=== PATIENT | female | born 1990 | race Asian ===

== ENCOUNTER 2025-08-23 23:21 | Inpatient (IN) | payer MEDICAID, OTHER ==
[~2025-08-23] VITALS: Ht 154.9 cm; Wt 58.2 kg
[2025-08-24 00:02] LABS: Hematocrit 37.2 % (36.0-46.0); Hemoglobin 12.7 g/dL (12.2-16.2); Mean Corpuscular Hemoglobin 28.4 pg (28.0-32.0); Mean Corpuscular Volume 83.0 fL (80.0-100.0); Nucleated Red Blood Cells % 0.1 %
[2025-08-24 00:15] LABS: Alanine Aminotransferase 23 U/L (7-40); Albumin 4.3 g/dL (3.2-4.8); Alkaline Phosphatase 64 U/L (46-116); Anion Gap 10 (5-15); BUN/Creatinine Ratio 15.4 (10.0-20.0); Bilirubin, Total 0.4 mg/dL (0.2-1.0); Calcium 8.8 mg/dL (8.7-10.4); Carbon Dioxide 26 mmol/L (20-31); Chloride 105 mmol/L (98-107); Glucose 99 mg/dL (74-106); Lipase 53 U/L (12-53); Potassium 3.9 mmol/L (3.5-5.1); Sodium 141 mmol/L (136-145); Total Protein 7.1 g/dL (5.7-8.2)
[2025-08-24 00:21] LABS: Blood Urea Nitrogen 8 mg/dL (9-23)
--- NOTE | 2025-08-24 00:35 | DVH ---
INDICATION: epig pain TECHNIQUE: Multiple real-time sonographic images were obtained of the right upper quadrant. COMPARISON: None FINDINGS: Liver is mildly enlarged measuring 16.2 cm. Mild hepatic steatosis. There is no intrahepatic or extrahepatic ductal dilatation. The common duct measures 0.5 cm. Gallbladder is mildly distended with an impacted stone in the gallbladder neck, borderline gallbladder wall thickening (0.5 cm), and mild pericholecystic edema. The right kidney measures 9.1 cm. The right kidney is normal in contour, size, and shape. The echogenicity is normal. There is no hydronephrosis. The pancreas is not well visualized due to overlying bowel gas. IMPRESSION: Impacted gallstone in the gallbladder neck, gallbladder distention, borderline wall thickening, and mild surrounding edema concerning for acute cholecystitis.
--- NOTE | 2025-08-24 00:54 | ED.PDOC ---
GI ASSESSMENT HPI Comments HPI: 34-year-old female who came to ER for abdominal pain. Patient woke up from sleep about 1-1/2 hours ago, sudden onset epigastric/right upper quadrant abdominal pain. Denies any nausea or vomiting. Denies any fever Poor Historian. Past Medical History: Denies any Past Surgical History: REVIEW OF SYSTEMS: CONSTITUTIONAL: Denies acute: fever, diaphoresis, chills, generalized weakness. HEAD: Denies acute: headache, photophobia Eyes: Denies acute: Double vision, vision loss, eye pain, eye discharge. EARS: Denies acute: tinnitus, hearing loss, ear discharge, ear pain, THROAT: Denies acute: sore throat, swelling, difficulty swallowing , pain with swallowing, change in voice. NECK: Denies acute: neck pain, neck swelling, stiff neck. HEART: Denies acute : chest pain, palpitations, LUNGS: Denies acute: SOB, wheezing, cough, hemoptysis ABDOMEN: Denies acute: Nausea, Vomiting, diarrhea, melena , hematemesis, hematochezia SKIN: Denies acute: rash, redness, lesions, itchiness. EXTREMITIES: Denies acute: calf pain, numbness, tingling, weakness, denies pain in extremity. Denies acute: Low back pain. Neuro: Denies acute: focal neurological deficit, motor or sensory focal neurological deficit, tremors, seizure like activity, confusion, dizziness, change in mental status, loss of bowel or bladder function, cauda equina like symptoms. : Denies acute: dysuria, hematuria, flank pain, increase in urinary frequency. PSYCH: Denies acute: hallucination, suicidal ideation, homicidal ideation. FEMALE: Denies acute: abnormal vaginal bleeding, foul odor, unusual discharge. PHYSICAL EXAM: General: -----moderate---acute distress, awake and alert. Head: normocephalic, atraumatic. No raccoon's eyes, no polanco sign. Neck: supple, trachea is midline, no swelling. Throat: Normal phonation. Eyes:, no erythema, no purulent discharge, no proptosis, no icterus. Heart: regular rate, regular rhythm, no significant murmur appreciated. Lungs: no apparent respiratory distress, Able to speak in full sentences. No wheezing, no rhonchi, no crackles. No stridors Clear to auscultation bilaterally. Abdomen: Epigastric/right upper quadrant tender to palpation, non distended, soft, no guarding, no rebound, + bowel sounds. Neuro: Awake, Alert, oriented to name, self, situation, follows commands GCS=15. Speech is normal. Skin: no petechia, no purpura, no cyanosis, non-pale, not jaundice. Lower extremities: --no - Pitting edema no deformity, no focal swelling, no calf TTP. Makes eye contact. moves all four extremities. Face: no apparent facial droop. Ambulating in the ED independently. ED COURSE: DISCLAIMER: This medical document was created using an electronic medical record system with voice recognition software and computerized dictation system. Although this document has been carefully reviewed, there might still be some phonetic and typographical errors. Occasional wrong-word or "sound-alike" substitutions may have occurred due to the inherent limitations of voice recognition software. These areas are purely typographical due to imperfections of the software programs and do not reflect any compromise in the patient's medical care. Please read the chart carefully and recognize, using context, where these substitutions have occurred. Chief Complaint: Abdominal Pain Time Seen by MD: 23:39 Reviewed Notes: Nurses Notes, Allergies Allergies: Coded Allergies: NO KNOWN ALLERGIES (Unverified , 08/24/25) Information Source: Patient, Spouse Mode of Arrival: Ambulatory Past Medical History Surgical History: Was a procedure done? Was a procedure done?: No GI differential Dx Differential Diagnosis: Cholecystitis, Diverticular disease, Gastritis/PUD, Gastroenteritis, Other (DDX include Diverticulitis, colitis, gastroenteritis, acute abdomen, SBO, enteritis, constipation, volvulus, appendicitis, Gallbladder disease, choledocolithiasis, ascending cholangitis, pancreatitis, intraAbdominal mass/neoplasm, hepatitis, UTI, pylonephritis, kidney stone, aneurysm, dissection, Inflammatory bowel disease, gastroparesis, ischemic bowel,,,,,,Food poisoning, bacterial/parasitic/viral etiology, trauma, diabetes DKA,ovarian torsion, ovarian cyst/mass, tubo-ovarian abscess, , ectopic , PID, STD.) X-Ray, Labs, Meds, VS Vital Signs Date Time Temp Pulse Resp B/P (MAP) Pulse Ox O2 Delivery O2 Flow Rate FiO2 08/23/25 23:35 71 08/23/25 23:23 97.2 52 25 120/79 97 97.2 Lab Test 08/24/25 02:45 08/24/25 00:55 08/23/25 23:51 Range/Units Urine Color Colorless Yellow Urine Clarity Clear Clear Urine pH 7.5 5.0-9.0 Urine Specific [place] 1.013 1.001-1.035 Urine Protein Negative Negative Urine Ketones Negative Negative Urine Blood 3+ H Negative /uL Urine Nitrite Negative Negative Urine Bilirubin Negative Negative Urine Urobilinogen Normal Negative mg/dL Urine Leukocyte Esterase 1+ Negative /uL Urine RBC 356 0 - 4 /hpf Urine Microscopic WBC 2 0-5 /HPF Urine Squamous Epithelial Cells Few <5 /hpf Urine Bacteria None seen None Seen /hpf Urine Glucose Normal Normal mg/dL Urine Test Negative Negative Urine Opiates Screen Neg NEGATIVE Urine Fentanyl Screen Neg NEGATIVE Urine Barbiturates Screen Neg NEGATIVE Urine Phencyclidine Screen Neg NEGATIVE Urine Amphetamines Screen Neg NEGATIVE Urine Benzodiazepines Screen Neg NEGATIVE Urine Cocaine Screen Neg NEGATIVE Urine Cannabinoids Screen Neg NEGATIVE Troponin I High Sensitivity < 3 L < 3 L </=34 ng/L White Blood Count 6.2 4.4-10.8 10^3/uL Red Blood Count 4.48 4.0-5.20 10^6/uL Hemoglobin 12.7 12.2-16.2 g/dL Hematocrit 37.2 36.0-46.0 % Mean Corpuscular Volume 83.0 80.0-100.0 fL Mean Corpuscular Hemoglobin 28.4 28.0-32.0 pg Mean Corpuscular Hemoglobin Concent 34.2 32.0-36.0 g/dL Red Cell Distribution Width 13.8 11.8-14.3 % Platelet Count 261 140-450 10^3/uL Mean Platelet Volume 6.8 L 6.9-10.8 fL Neutrophils (%) (Auto) 53.7 37.0-80.0 % Lymphocytes (%) (Auto) 31.8 10.0-50.0 % Monocytes (%) (Auto) 7.8 0.0-12.0 % Eosinophils (%) (Auto) 6.0 0.0-7.0 % Basophils (%) (Auto) 0.7 0.0-2.0 % Neutrophils # (Auto) 3.3 1.6-8.6 10 ^3/uL Lymphocytes # (Auto) 2.0 0.4-5.4 10 ^3/uL Monocytes # (Auto) 0.5 0-1.3 10 ^3/uL Eosinophils # (Auto) 0.4 0-0.8 10 ^3/uL Basophils # (Auto) 0 0-0.2 10 ^3/uL Nucleated Red Blood Cells 0.1 % Sodium Level 141 136-145 mmol/L Potassium Level 3.9 3.5-5.1 mmol/L Chloride Level 105 98-107 mmol/L Carbon Dioxide Level 26 20-31 mmol/L Anion Gap 10 5-15 Blood Urea Nitrogen 8 L 9-23 mg/dL Creatinine 0.52 L 0.550-1.02 mg/dL Glomerular Filtration Rate Calc 125 >90 mL/min BUN/Creatinine Ratio 15.4 10.0-20.0 Serum Glucose 99 74-106 mg/dL Lactic Acid Level 1.0 0.4-2.0 mmol/L Calcium Level 8.8 8.7-10.4 mg/dL Total Bilirubin 0.4 0.2-1.0 mg/dL Aspartate Amino Transferase (AST) 15 13-40 U/L Alanine Aminotransferase (ALT) 23 7-40 U/L Alkaline Phosphatase 64 46-116 U/L Total Protein 7.1 5.7-8.2 g/dL Albumin 4.3 3.2-4.8 g/dL Lipase 53 12-53 U/L Current Medications Medications (Trade) Dose Ordered Sig/Priya Route Start Time Stop Time Status Last Admin Piperacillin Sod/ Tazobactam Sod 100 ml @ 100 mls/hr ONCE ONCE IV 08/24/25 03:00 08/24/25 03:59 DC 08/24/25 03:[address] [address] Ph: [phone] DIAGNOSTIC IMAGING Diagnostic Imaging Report : [id number] Signed PATIENT: BALBIR ALCALA ACCT: [id number] UNIT: [id number] : 1990 LOC: ER ROOM / BED: / AGE / SEX: 34 / F ADM STATUS: REG ER SERVICE 3192 ORDERING PHYSICIAN: HERMINIA MISHRA DO PROCEDURE(s): ABDL - ABDOMEN LIMITED REASON: epig pain ORDER NUMBER(s): [id number], ACCESSION NUMBER(s): [id number] INDICATION: epig pain TECHNIQUE: Multiple real-time sonographic images were obtained of the right upper quadrant. COMPARISON: None FINDINGS: Liver is mildly enlarged measuring 16.2 cm. Mild hepatic steatosis. There is no intrahepatic or extrahepatic ductal dilatation. The common duct measures 0.5 cm. Gallbladder is mildly distended with an impacted stone in the gallbladder neck, borderline gallbladder wall thickening (0.5 cm), and mild pericholecystic edema. The right kidney measures 9.1 cm. The right kidney is normal in contour, size, and shape. The echogenicity is normal. There is no hydronephrosis. The pancreas is not well visualized due to overlying bowel gas. IMPRESSION: Impacted gallstone in the gallbladder neck, gallbladder distention, borderline wall thickening, and mild surrounding edema concerning for acute cholecystitis. ATED BY: MAU AVILEZ MD DICTATED DATE/TIME: 08/24/2531 SIGNED BY: MAU AVILEZ MD SIGNED DATE/TIME: 08/24/2531 CC: [place] [id number] Ph: [phone] DIAGNOSTIC IMAGING Diagnostic Imaging Report : [id number] Signed PATIENT: BALBIR ALCALA ACCT: [id number] UNIT: [id number] : 1990 LOC: OVERFLOW ROOM / BED: [address] [place] [address] / AGE / SEX: 34 / F ADM STATUS: ADM IN SERVICE 0144 ORDERING PHYSICIAN: HERMINIA MISHRA DO PROCEDURE(s): ABPLIV - CT AB PEL WITH IV CON ONLY REASON: epig pain ORDER NUMBER(s): [id number], ACCESSION NUMBER(s): [id number] Exam: CT CT AB PEL WITH IV CON ONLY History: epig pain COMPARISON: None Technique: Multidetector spiral CT of the abdomen and pelvis was performed from lung bases to pubic symphysis. Intravenous contrast was administered during this examination. Portal venous imaging was obtained. Axial, coronal and sagittal multiplanar reformats were performed by the technologist on a separate workstation. Radiation Dose : 1. Abdomen/Pelvis: CTDIvol 7.32 mGy, DLP 423.73 mGy*cm. CONTRAST: Type of contrast: Omniscan 300 Contrast injected: 100 ml Findings: Lung Bases: No acute or significant lung base finding. Normal heart size. No pleural or pericardial effusion. Liver: The liver is normal in size. 2.1 cm probable left lobe hemangioma. No focal lesions. Normal hepatic vascular enhancement. Gallbladder and Biliary Tree: Cholelithiasis, gallbladder distention and moderate wall thickening/ pericholecystic edema. Spleen: Unremarkable Pancreas: The pancreas is normal in appearance without focal lesions or abnormal enhancement. Adrenal Glands: Unremarkable Kidneys: No hydronephrosis. Bladder: Unremarkable Bowel: The stomach is grossly normal in appearance. Retained colorectal stool. Small bowel and colon are otherwise normal in caliber and distribution. The appendix is normal. Ascites: Absent Lymphadenopathy: No mesenteric, retroperitoneal or periportal lymphadenopathy. Abdominal Wall and Mesentery: Unremarkable. Vasculature: The visualized abdominal aorta is normal in size and caliber. Abdominal and pelvic vessels demonstrate normal enhancement. Pelvic Organs: Unremarkable. Likely physiologic endometrial fluid. Musculoskeletal: No aggressive focal bony lesions, acute fractures or dislocation. IMPRESSION: 1. Cholelithiasis, gallbladder distention and wall thickening / pericholecystic edema. In the appropriate clinical setting, these findings may be consistent with acute cholecystitis. 2. Retained colorectal stool. Radiation optimization: All CT scans at this facility use at least one of these dose optimization techniques: automated exposure control mA and/or kV adjustment per patient size (includes targeted exams where dose is matched to clinical indication) or iterative reconstruction. ATED BY: ASHER PURI MD DICTATED DATE/TIME: 08/24/25536 SIGNED BY: ASHER PURI MD SIGNED DATE/TIME: 08/24/25536 CC: [place] [id number] Ph: [phone] DIAGNOSTIC IMAGING Diagnostic Imaging Report : [id number] Signed PATIENT: BALBIR ALCALA ACCT: [id number] UNIT: [id number] : 1990 LOC: OVERFLOW ROOM / BED: 1014-ER / A AGE / SEX: 34 / F ADM STATUS: ADM IN SERVICE 0 ORDERING PHYSICIAN: COLTEN RICO PROCEDURE(s): CXR1 - CHEST XRAY 1 VIEW REASON: chest pain ORDER NUMBER(s): [id number], ACCESSION NUMBER(s): [id number] CHEST RADIOGRAPH Indication: chest pain Technique: Single frontal view of the chest was obtained COMPARISON: None FINDINGS: Lines and Tubes: None Lungs: Clear Pleura: No effusion. No pneumothorax. Cardiomediastinal contours: Unremarkable Bones: Unremarkable IMPRESSION: 1. No acute disease. ATED BY: ASHER PURI MD DICTATED DATE/TIME: 08/24/25527 SIGNED BY: ASHER PURI MD SIGNED DATE/TIME: 08/24/25527 CC: Time of 1ST Reevaluation: 00:58 Reevaluation 1ST: Unchanged Patient Education/Counseling: Diagnosis, Treatment Family Education/Counseling: Diagnosis, Treatment Comments MDM: patient presented with the above HPI.--abdominal pain----workup was initiated. patient was found with the above mentioned diagnosis. the following medications were ordered: please refer to order lists of meds and tests obtained by myself Dr. Mishra. Patient ED course and VS have been stabilized. Patient has been reassessed in the ED and remained in a stable condition. Pertinent incidental findings were discussed with the patient and/or family. Patient/family voices understanding and is agreeable with plan. Patient has been observed in the ED adequate length of time to insure improvement/stability. Escalation of care considered: Consideration of escalation to observation or admission Ultrasound and CT scan of the abdomen and pelvis were obtained which reveals acute cholecystitis. A consult for General surgery was placed. Patient was ADMITTED to the medicine team for further evaluation and treatment of their presentation. All the reports of any imaging studies that were ordered by myself were reviewed by myself. SEPSIS Sepsis Screen Date sepsis recognized/suspect: Aug 23, 2025 Time Sepsis recognized/suspect: 2326 Recent Procedure: No On Antibiotic Therapy: No Respiratory Rate >20: Yes Heart Rate >90: No Temp<36 C (96.8 F) or >38.3 C: No SBP <90 or MAP <65 mmHG: No New Acute Mental Status Change: No Is the patient on CPAP, BIPAP,: No Physician Orders Janitorial Tech (08/23/25 ) Electrocardigram (08/23/25 23:39) Abdomen Limited (08/23/25 23:42) Npo Except For Medications (08/24/25 00:56) Npo (Nothing By Mouth) Diet (08/24/25 Breakfast) Ct Ab Pel With Iv Con Only (08/24/25 01:44) Vital Signs Date Time Temp Pulse Resp B/P (MAP) Pulse Ox O2 Delivery O2 Flow Rate FiO2 08/23/25 23:35 71 08/23/25 23:23 97.2 52 25 120/79 97 97.2 Laboratory Tests Test 08/23/25 23:51 Lactic Acid Level 1.0 mmol/L (0.4-2.0) White Blood Count 6.2 10^3/uL (4.4-10.8) Medications Medications Dose Ordered Sig/Priya Route Start Time Stop Time Status Last Admin Dose Admin Piperacillin Sod/ Tazobactam Sod 100 ml @ 100 mls/hr ONCE ONCE IV 08/24/25 03:00 08/24/25 03:59 DC 08/24/25 03:16 Departure 1 Departure Time of Disposition: 00:55 Impression: Primary Impression: Acute cholecystitis Disposition: ADMITTED INPATIENT Admit to: [facility] Condition: Guarded Discharged With: Self Critical Care Note Critical Care Time?: No I personally scribed for HERMINIA MISHRA DO ([email or web address]) on 08/24/25 at 00:54. Electronically submitted by Johan Orourke ([facility] I personally scribed for HERMINIA MISHRA DO ([email or web address]) on 08/24/25 at 01:00. Electronically submitted by Johan Orourke ([facility] I personally scribed for HERMINIA MISHRA DO ([email or web address]) on 08/24/25 at 01:33. Electronically submitted by Johan Orourke ([facility] I personally scribed for HERMINIA MISHRA DO ([email or web address]) on 08/24/25 at 05:47. Electronically submitted by Johan Orourke ([email or web address]). HERMINIA MISHRA DO Aug 24, 2025 00:54
[2025-08-24] MEDS ORDERED: ONDANSETRON HCL 4 MG/2 ML VIAL IV PRN (03:15)
[2025-08-24] MEDS ORDERED: HYDROmorphone HCL 2 MG/ML VL/or syr IV PRN (03:15)
[2025-08-24] MEDS ORDERED: SODIUM CHLORIDE 0.9% 1,000 ML IV ONE (03:15)
[2025-08-24] MEDS: PIPERACILLIN-TAZOB 3.375GM 100 ML IV ONE (03:16)
--- NOTE | 2025-08-24 03:29 | DVHHPRES ---
History of Present Illness Resident Creating Document: COLTEN [place] History of Present Illness Patient is a 34-year-old female with no significant past medical history, presented to [facility] ED with complaint of acute abdominal pain. She reports that the pain began suddenly at approximately 9:30 p.m. tonight, waking her from sleep and prompting her to come to the ED. The pain is described as sharp and constant, located in the right upper quadrant and epigastric region. She denies associated symptoms including nausea, vomiting, or fever. She notes experiencing similar symptoms approximately two weeks ago, which she managed at home with pain medication. On evaluation in the ED, patient is afebrile, tachypnea, other vitals are stable. Initial labs show BUN 8, creatinine 0.52. RUQ ultrasound shows Impacted gallstone in the gallbladder neck, gallbladder distention, borderline wall thickening, and mild surrounding edema concerning for acute cholecystitis. The patient was placed NPO, started on IV antibiotics and IV fluids. Patient is admitted for further evaluation and management. Past Surgical History: None Smoke: No ALCOHOL: none Drugs: None Lives: with Family Review of Systems Review of Systems Eyes: No Pain, No Vision change, No Conjunctivae inflammation, No Eyelid inflammation, No Other, No Redness ENT: No Ear pain, No Ear discharge, No Nose pain, No Nose discharge, No Nose congestion, No Mouth pain, No Mouth swelling, No Throat pain, No Throat swelling, No Other Cardiovascular: No Chest Pain, No Palpitations, No Orthopnea, No Paroxysmal No Dyspnea, No Edema, No Lt Headedness, No Other Respiratory: No Cough, No Dry, No Shortness of breath, No SOB with exertion, No Wheezing, No Hemoptysis, No Pleuritic Pain, No Sputum, No Other Gastrointestinal: No Nausea, No Vomiting, Abdominal Pain, No Diarrhea, No Constipation, No Melena, No Hematochezia, No Other Genitourinary: No Dysuria, No Frequency, No Incontinence, No Hematuria, No Retention, No Other Musculoskeletal: No other, No neck pain, No shoulder pain, No arm pain, No back pain, No hand pain, No leg pain, No foot pain Skin: No Rash, No Lesions, No Jaundice, No Bruising, No Other Allergies: Coded Allergies: NO KNOWN ALLERGIES (Unverified , 08/24/25) Exam Vital Signs Vital Signs Date Time Temp Pulse Resp B/P (MAP) Pulse Ox O2 Delivery O2 Flow Rate FiO2 08/23/25 23:35 71 08/23/25 23:23 97.2 25 120/79 97 97.2 Exam General Appearance: Mild distress. Well developed. Well nourished. NAD Head Exam: Normal inspection Neck Exam: Normal inspection. Non-tender. Normal alignment Pulmonary/Respiratory: Chest non-tender. Clear bilateral breath sounds, no crackles, no wheezing. Cardiovascular/Chest: Regular rate and rhythm. No murmurs. No JVD. Peripheral Pulses: 2+ Radial (R). 2+ Radial (L). 2+ Pedal (R). 2+ Pedal (L) Abdominal Exam: positive Eid sign. RUQ tenderness. Normal bowel sounds. Soft. normal abdomen, no visible veins, Nontender. No hepatospenomegaly. No masses Ankle Exam: Negative ankle edema Lower extremities: Negative lower extremity edema Neuro/Mental Status: A&O x4. Coherent. Thoughts/Psych: Normal thought pattern. Appropriate mood and affect. Good judgement and insight Skin Exam: Normal inspection. Normal color. Warm. Dry Labs/Xrays Labs Test 08/24/25 00:55 08/23/25 23:51 Range/Units Troponin I High Sensitivity < 3 L </=34 ng/L White Blood Count 6.2 4.4-10.8 10^3/uL Red Blood Count 4.48 4.0-5.20 10^6/uL Hemoglobin 12.7 12.2-16.2 g/dL Hematocrit 37.2 36.0-46.0 % Mean Corpuscular Volume 83.0 80.0-100.0 fL Mean Corpuscular Hemoglobin 28.4 28.0-32.0 pg Mean Corpuscular Hemoglobin Concent 34.2 32.0-36.0 g/dL Red Cell Distribution Width 13.8 11.8-14.3 % Platelet Count 261 140-450 10^3/uL Mean Platelet Volume 6.8 L 6.9-10.8 fL Neutrophils (%) (Auto) 53.7 37.0-80.0 % Lymphocytes (%) (Auto) 31.8 10.0-50.0 % Monocytes (%) (Auto) 7.8 0.0-12.0 % Eosinophils (%) (Auto) 6.0 0.0-7.0 % Basophils (%) (Auto) 0.7 0.0-2.0 % Neutrophils # (Auto) 3.3 1.6-8.6 10 ^3/uL Lymphocytes # (Auto) 2.0 0.4-5.4 10 ^3/uL Monocytes # (Auto) 0.5 0-1.3 10 ^3/uL Eosinophils # (Auto) 0.4 0-0.8 10 ^3/uL Basophils # (Auto) 0 0-0.2 10 ^3/uL Nucleated Red Blood Cells 0.1 % Sodium Level 141 136-145 mmol/L Potassium Level 3.9 3.5-5.1 mmol/L Chloride Level 105 98-107 mmol/L Carbon Dioxide Level 26 20-31 mmol/L Anion Gap 10 5-15 Blood Urea Nitrogen 8 L 9-23 mg/dL Creatinine 0.52 L 0.550-1.02 mg/dL Glomerular Filtration Rate Calc 125 >90 mL/min BUN/Creatinine Ratio 15.4 10.0-20.0 Serum Glucose 99 74-106 mg/dL Lactic Acid Level 1.0 0.4-2.0 mmol/L Calcium Level 8.8 8.7-10.4 mg/dL Total Bilirubin 0.4 0.2-1.0 mg/dL Aspartate Amino Transferase (AST) 15 13-40 U/L Alanine Aminotransferase (ALT) 23 7-40 U/L Alkaline Phosphatase 64 46-116 U/L Total Protein 7.1 5.7-8.2 g/dL Albumin 4.3 3.2-4.8 g/dL Lipase 53 12-53 U/L SEPSIS Sepsis Screen Date sepsis recognized/suspect: Aug 23, 2025 Time Sepsis recognized/suspect: 2326 Recent Procedure: No On Antibiotic Therapy: No Respiratory Rate >20: Yes Heart Rate >90: No Temp<36 C (96.8 F) or >38.3 C: No SBP <90 or MAP <65 mmHG: No New Acute Mental Status Change: No Is the patient on CPAP, BIPAP,: No Physician Orders Discharge Planner (08/23/25 ) Urinalysis (08/23/25 23:39) Electrocardigram (08/23/25 23:39) Abdomen Limited (08/23/25 23:42) Test, Urine (08/23/25 23:42) Npo Except For Medications (08/24/25 00:56) Npo (Nothing By Mouth) Diet (08/24/25 Breakfast) Sodium Chloride 0.9% (08/24/25 01:00) Ondansetron Hcl (Zofran) (08/24/25 01:00) Fentanyl Citrate Injection (08/24/25 01:00) Ct Ab Pel With Iv Con Only (08/24/25 01:44) Piperacillin-Tazob 3.375gm (Zosyn 3.375g (08/24/25 03:00) Admit (08/24/25 03:11) Allergies (08/24/25 03:11) Code Status (08/24/25 03:11) Ondansetron Hcl (Zofran) (08/24/25 03:15) Complete Blood Count (08/24/25 04:00) Comprehensive Metabolic Panel (08/24/25 04:00) Condition: Fair (08/24/25 03:11) Oxygen By Nasal Cannula (08/24/25 03:11) Stat Ekg For Chest Pain (08/24/25 03:11) Notify Md Of Changes From Base (08/24/25 03:11) Type And Screen (08/24/25 03:11) PTPTT (08/24/25 03:11) Drug Screen (08/24/25 03:11) NS (08/24/25 03:15) Pantoprazole (Protonix) (08/24/25 03:15) Pantoprazole (Protonix) (08/25/25 10:00) Chest Xray 1 View (08/24/25 03:11) Magnesium (08/24/25 03:11) Hydromorphone Injection (Dilaudid Inject (08/24/25 03:15) Ceftriaxone Ivpb Rocephin (08/24/25 09:00) Ceftriaxone Ivpb Rocephin (08/24/25 03:15) Metronidazole Ivpb Flagyl (08/24/25 06:00) * Surgical Consult (08/24/25 03:11) Vital Signs Date Time Temp Pulse Resp B/P (MAP) Pulse Ox O2 Delivery O2 Flow Rate FiO2 08/23/25 23:35 71 08/23/25 23:23 97.2 52 25 120/79 97 97.2 Laboratory Tests Test 08/23/25 23:51 Lactic Acid Level 1.0 mmol/L (0.4-2.0) White Blood Count 6.2 10^3/uL (4.4-10.8) Assessment/Plan Assessment/Plan Acute cholecystitis Cholelithiasis RUQ Ultrasound: Impacted gallstone in the gallbladder neck, gallbladder distention, borderline wall thickening, and mild surrounding edema concerning for acute cholecystitis. Surgical consult Chest X-ray ordered CT abdomen/pelvis ordered ceftriaxone IV once Metronidazole IVPB q8h IV NS 1,000 MLS/HR one NS IV 100 ML/HR one Zofran 8 MG IV once potonix 40 MG IV once pain management with Dilaudid 0.5 MG IV q4h prn Diet: NPO PUD prophylaxis: protonix 40mg Goals of care: Full code, discussed for >30 minutes on 08/24/25 Plan discussed with patient Plan discussed with Dr. Rock Plan discussed with: Patient My Orders Orders - COLTEN [place] RESIDENT Procedure Category Date Status Time Admit ADMIT 08/24/25 Transmitted 03:11 Allergies MERLE 08/24/25 Transmitted 03:11 Code Status CODE 08/24/25 Transmitted 03:11 Ondansetron Hcl PHA 08/24/25 Transmitted (Zofran) 03:15 Complete Blood Count LAB 08/24/25 Transmitted 04:00 Comprehensive LAB 08/24/25 Transmitted Metabolic Panel 04:00 Condition: Fair MERLE 08/24/25 Transmitted 03:11 Oxygen By Nasal RT 08/24/25 Transmitted Cannula 03:11 Stat Ekg For Chest MERLE 08/24/25 Transmitted Pain 03:11 Notify Md Of Changes MERLE 08/24/25 Transmitted From Base 03:11 Type And Screen BBK 08/24/25 Transmitted 03:11 PTPTT LAB 08/24/25 Transmitted 03:11 Drug Screen LAB 08/24/25 Transmitted 03:11 NS PHA 08/24/25 Transmitted 03:15 Pantoprazole PHA 08/24/25 Transmitted (Protonix) 03:15 Pantoprazole PHA 08/25/25 Transmitted (Protonix) 10:00 Chest Xray 1 View XY 08/24/25 Transmitted 03:11 Magnesium LAB 08/24/25 Transmitted 03:11 Hydromorphone PHA 08/24/25 Transmitted Injection (Dilaudid 03:15 Ceftriaxone Ivpb PHA 08/24/25 Transmitted Rocephin 09:00 Ceftriaxone Ivpb PHA 08/24/25 Transmitted Rocephin 03:15 Metronidazole Ivpb PHA 08/24/25 Transmitted Flagyl 06:00 * Surgical Consult CONS 08/24/25 Transmitted 03:11 Date of Service: Aug 24, 2025 Billing Provider: MADISON ROCK MD Common Visit Codes: [id number] INP/OBS CARE (HIGH) Secondary Visit Codes: [id number] CARE PLAN 30 MINUTES COLTEN RICO RESIDENT Aug 24, 2025 03:29
[2025-08-24 04:16] LABS: Amphetamine Screen, Urine Neg (NEGATIVE); Barbiturate Scree,Urine Neg (NEGATIVE); Benzodiazephine Screen, Urine Neg (NEGATIVE); Cannabinoid Screen, Urine Neg (NEGATIVE); Cocaine Screen, Urine Neg (NEGATIVE); Opiate Scree,Urine Neg (NEGATIVE); Phencyclidine Screen, Urine Neg (NEGATIVE)
[2025-08-24 04:24] LABS: Hematocrit 38.3 % (36.0-46.0); Hemoglobin 12.9 g/dL (12.2-16.2); Mean Corpuscular Hemoglobin 28.2 pg (28.0-32.0); Mean Corpuscular Volume 83.5 fL (80.0-100.0); Nucleated Red Blood Cells % 0.1 %
[2025-08-24 04:32] LABS: Urine Protein, UAD Negative (Negative)
[2025-08-24 04:40] LABS: INR 0.95 (0.9-1.15); Partial Thromboplastin Time 27.1 SEC (24.5-34.5); Prothrombin Time 10.1 sec (9.3-11.8)
[2025-08-24 04:41] LABS: Alanine Aminotransferase 24 U/L (7-40); Albumin 4.5 g/dL (3.2-4.8); Alkaline Phosphatase 65 U/L (46-116); Anion Gap 11 (5-15); BUN/Creatinine Ratio 14.0 (10.0-20.0); Calcium 9.2 mg/dL (8.7-10.4); Carbon Dioxide 25 mmol/L (20-31); Chloride 104 mmol/L (98-107); Magnesium 2.1 mg/dL (1.6-2.6); Potassium 3.9 mmol/L (3.5-5.1); Sodium 140 mmol/L (136-145); Total Protein 7.4 g/dL (5.7-8.2)
[2025-08-24 04:42] LABS: Bilirubin, Total 0.4 mg/dL (0.2-1.0)
[2025-08-24 05:01] LABS: Blood Urea Nitrogen 7 mg/dL (9-23); Glucose 111 mg/dL (74-106)
[2025-08-24] MEDS: IOHEXOL 300 MG/ML 100ML BOTTLE IJ ONE (05:12)
--- NOTE | 2025-08-24 05:31 | DVH ---
CHEST RADIOGRAPH Indication: chest pain Technique: Single frontal view of the chest was obtained COMPARISON: None FINDINGS: Lines and Tubes: None Lungs: Clear Pleura: No effusion. No pneumothorax. Cardiomediastinal contours: Unremarkable Bones: Unremarkable IMPRESSION: 1. No acute disease.
--- NOTE | 2025-08-24 05:40 | DVH ---
Exam: CT CT AB PEL WITH IV CON ONLY History: epig pain COMPARISON: None Technique: Multidetector spiral CT of the abdomen and pelvis was performed from lung bases to pubic symphysis. Intravenous contrast was administered during this examination. Portal venous imaging was obtained. Axial, coronal and sagittal multiplanar reformats were performed by the technologist on a separate workstation. Radiation Dose : 1. Abdomen/Pelvis: CTDIvol 7.32 mGy, DLP 423.73 mGy*cm. CONTRAST: Type of contrast: Omniscan 300 Contrast injected: 100 ml Findings: Lung Bases: No acute or significant lung base finding. Normal heart size. No pleural or pericardial effusion. Liver: The liver is normal in size. 2.1 cm probable left lobe hemangioma. No focal lesions. Normal hepatic vascular enhancement. Gallbladder and Biliary Tree: Cholelithiasis, gallbladder distention and moderate wall thickening/ pericholecystic edema. Spleen: Unremarkable Pancreas: The pancreas is normal in appearance without focal lesions or abnormal enhancement. Adrenal Glands: Unremarkable Kidneys: No hydronephrosis. Bladder: Unremarkable Bowel: The stomach is grossly normal in appearance. Retained colorectal stool. Small bowel and colon are otherwise normal in caliber and distribution. The appendix is normal. Ascites: Absent Lymphadenopathy: No mesenteric, retroperitoneal or periportal lymphadenopathy. Abdominal Wall and Mesentery: Unremarkable. Vasculature: The visualized abdominal aorta is normal in size and caliber. Abdominal and pelvic vessels demonstrate normal enhancement. Pelvic Organs: Unremarkable. Likely physiologic endometrial fluid. Musculoskeletal: No aggressive focal bony lesions, acute fractures or dislocation. IMPRESSION: 1. Cholelithiasis, gallbladder distention and wall thickening / pericholecystic edema. In the appropriate clinical setting, these findings may be consistent with acute cholecystitis. 2. Retained colorectal stool. Radiation optimization: All CT scans at this facility use at least one of these dose optimization techniques: automated exposure control mA and/or kV adjustment per patient size (includes targeted exams where dose is matched to clinical indication) or iterative reconstruction.
[2025-08-24] MEDS: PANTOPRAZOLE 40 MG/10 ML VIAL INJ IV ONE (06:38)
[2025-08-24] MEDS: ONDANSETRON HCL 4 MG/2 ML VIAL IV ONE (06:38)
[2025-08-24] MEDS: fentaNYL CITRATE 100 MCG/2 ML VL IV ONE (06:40)
[2025-08-24] MEDS: SODIUM CHLORIDE 0.9% 1,000 ML IV ONE (06:41)
[2025-08-24 08:36] VITALS: BP 95/58; PULSE 68; RESP 16; TEMP 98.1; O2SAT 100
--- NOTE | 2025-08-24 09:05 | DVHINCON2 ---
Date of service: Aug 24, 2025 Reason for Consultation acute cholecystitis History of Present Illness Chief Complaint of Abdominal/F: Abdominal pain Onset/Duration of Abd/Flank Pa: Constant Quality of Abd/Flank Pain: Sharpness Location of Abdominal Onset: Epigastric Abdominal Pain Radiation: RUQ Timing of Abdominal Pain: Still present Past Medical History Cardiac: No pertinent Hx Pulmonary: No pertinent Hx Central Nervous System: No pertinent Hx GI: No pertinent Hx Hemotology/Oncology: No pertinent Hx Hepatobiliary: No pertinent Hx Psychiatric: No pertinent Hx Musculoskeletal: No pertinent Hx Rheumotologic: No pertinent Hx Infectious Disease: No peritnent Hx ENT: No pertinent Hx Renal/: No pertinent Hx Endocrine: No pertinent Hx Dermatology: No pertinent Hx Past Surgical History: Family History: No pertinent Hx Smoker: No Hx (Negative) Alocohol: None Drugs: None Lives with: With family Review of Systems Constitutional: No symptom reported Ears, Nose, & Throat: No symptom reported Eyes: No symptom reported Pulmonary/Respiratory: No symptom reported Cardiovascular: No symptom reported Gastrointestinal: Abdominal Pain Genitourinary: No symptom reported Musculoskeletal: No symptom reported Skin: No symptom reported Psychiatric: No symptom reported Endocrine: No symptom reported Hemotologic/Lymphatic: No symptom reported H&P Exam Vital Signs Vital Signs Date Time Temp Pulse Resp B/P (MAP) Pulse Ox O2 Delivery O2 Flow Rate FiO2 08/24/25 06:40 115/79 08/24/25 06:19 97.8 79 18 100 97.8 General Appeara: Well developed, Well nourished Head Exam: Normal inspection Pulmonary/Respiratory: Normal inspection Cardiovascular/Chest: Normal inspection, Regular rate Abdominal Exam: Soft Abdominal Pain Onset Location: Epigastric Tendon/ Neuro: Normal sensation QA MANAGER Exam: Normal hearing, Normal speech, PERRL Neuro/Mental St: Alert, Oriented Appearance: Appropriate appearance Eye contact/ Speech: Cooperative, Good eye contact, Normal speech Skin Exam: Normal inspection, Normal color, Warm/dry Labs/Xrays Labs Test 08/24/25 03:56 08/24/25 02:45 08/24/25 00:55 08/23/25 23:51 Range/Units White Blood Count 5.7 4.4-10.8 10^3/uL Red Blood Count 4.58 4.0-5.20 10^6/uL Hemoglobin 12.9 12.2-16.2 g/dL Hematocrit 38.3 36.0-46.0 % Mean Corpuscular Volume 83.5 80.0-100.0 fL Mean Corpuscular Hemoglobin 28.2 28.0-32.0 pg Mean Corpuscular Hemoglobin Concent 33.8 32.0-36.0 g/dL Red Cell Distribution Width 13.4 11.8-14.3 % Platelet Count 264 140-450 10^3/uL Mean Platelet Volume 7.0 6.9-10.8 fL Neutrophils (%) (Auto) 60.2 37.0-80.0 % Lymphocytes (%) (Auto) 27.1 10.0-50.0 % Monocytes (%) (Auto) 6.4 0.0-12.0 % Eosinophils (%) (Auto) 5.8 0.0-7.0 % Basophils (%) (Auto) 0.5 0.0-2.0 % Neutrophils # (Auto) 3.4 1.6-8.6 10 ^3/uL Lymphocytes # (Auto) 1.5 0.4-5.4 10 ^3/uL Monocytes # (Auto) 0.4 0-1.3 10 ^3/uL Eosinophils # (Auto) 0.3 0-0.8 10 ^3/uL Basophils # (Auto) 0 0-0.2 10 ^3/uL Nucleated Red Blood Cells 0.1 % Prothrombin Time 10.1 9.3-11.8 sec Prothrombin Time INR 0.95 0.9-1.15 Activated Partial Thromboplast Time 27.1 24.5-34.5 SEC Sodium Level 140 136-145 mmol/L Potassium Level 3.9 3.5-5.1 mmol/L Chloride Level 104 98-107 mmol/L Carbon Dioxide Level 25 20-31 mmol/L Anion Gap 11 5-15 Blood Urea Nitrogen 7 L 9-23 mg/dL Creatinine 0.50 L 0.550-1.02 mg/dL Glomerular Filtration Rate Calc 126 >90 mL/min BUN/Creatinine Ratio 14.0 10.0-20.0 Serum Glucose 111 H 74-106 mg/dL Calcium Level 9.2 8.7-10.4 mg/dL Magnesium Level 2.1 1.6-2.6 mg/dL Total Bilirubin 0.4 0.2-1.0 mg/dL Aspartate Amino Transferase (AST) 14 13-40 U/L Alanine Aminotransferase (ALT) 24 7-40 U/L Alkaline Phosphatase 65 46-116 U/L Total Protein 7.4 5.7-8.2 g/dL Albumin 4.5 3.2-4.8 g/dL Urine Color Colorless Yellow Urine Clarity Clear Clear Urine pH 7.5 5.0-9.0 Urine Specific [place] 1.013 1.001-1.035 Urine Protein Negative Negative Urine Ketones Negative Negative Urine Blood 3+ H Negative /uL Urine Nitrite Negative Negative Urine Bilirubin Negative Negative Urine Urobilinogen Normal Negative mg/dL Urine Leukocyte Esterase 1+ Negative /uL Urine RBC 356 0 - 4 /hpf Urine Microscopic WBC 2 0-5 /HPF Urine Squamous Epithelial Cells Few <5 /hpf Urine Bacteria None seen None Seen /hpf Urine Glucose Normal Normal mg/dL Urine Test Negative Negative Urine Opiates Screen Neg NEGATIVE Urine Fentanyl Screen Neg NEGATIVE Urine Barbiturates Screen Neg NEGATIVE Urine Phencyclidine Screen Neg NEGATIVE Urine Amphetamines Screen Neg NEGATIVE Urine Benzodiazepines Screen Neg NEGATIVE Urine Cocaine Screen Neg NEGATIVE Urine Cannabinoids Screen Neg NEGATIVE Troponin I High Sensitivity < 3 L </=34 ng/L Lactic Acid Level 1.0 0.4-2.0 mmol/L Lipase 53 12-53 U/L Assessment/Plan Problem List: (1) Acute cholecystitis Primary Diagnosis acute cholecystitis Plan patient complaint of epigastric pain which woke her up from her sleep which pro pmted her to come to the ER she describes the pain as sharp and constant. The pain is better today. Patietn on exam complains of epigastric pain and discofort to the right upper quadrant. Positive murphys sign denies nausea or vomiting review of ultrasound IMPRESSION: Impacted gallstone in the gallbladder neck, gallbladder distention, borderline wall thickening, and mild surrounding edema concerning for acute cholecystitis. from review of image reports, notes, exam and discussion with Dr. Levin surgery for tomorrow am surgery was explained to patient with risks and complications in detail Plan: Laparoscopic possibly open cholecystectomy tomorrow am NPO IV hydration Plan discussed with: Patient, Other (Dr. Juvenal Fisher) Visit Coding Surgery Date of Service if different f: Aug 24, 2025 Billing Provider: ALISON LEVIN MD Surgery Visit Codes: 77317 - INP CONSULT <80 MIN BRANDI CHOWDHURY LEAD PORTFOLIO MANAGER Aug 24, 2025 09:05
[2025-08-24] MEDS: D5W/SOD CHL 0.45%/KCL 20MEQ 1,000 ML IV SCH (11:00)
[2025-08-24 11:18] VITALS: BP 95/58; PULSE 68; RESP 16; TEMP 98.1; O2SAT 100
[2025-08-24 12:42] VITALS: BP 92/85; PULSE 63; RESP 16; TEMP 97.9; O2SAT 99
[2025-08-24 16:45] VITALS: BP 97/64; PULSE 72; RESP 16; TEMP 97.7; O2SAT 100
[2025-08-24 20:00] VITALS: PULSE 68; RESP 16; O2SAT 99
[2025-08-24 21:00] VITALS: BP 94/61; PULSE 68; RESP 16; TEMP 97.4; O2SAT 99
[2025-08-25] VITALS (7 sets, daily range): BP systolic 92–118; BP diastolic 58–75; PULSE 69–102; RESP 16–18; TEMP 97.8–98.5; O2SAT 91–100
[2025-08-25 06:57] LABS: Alanine Aminotransferase 23 U/L (7-40); Albumin 4.3 g/dL (3.2-4.8); Alkaline Phosphatase 66 U/L (46-116); BUN/Creatinine Ratio 8.9 (10.0-20.0); Bilirubin, Total 0.5 mg/dL (0.2-1.0); Carbon Dioxide 27 mmol/L (20-31); Glucose 85 mg/dL (74-106); Potassium 3.6 mmol/L (3.5-5.1); Sodium 142 mmol/L (136-145); Total Protein 7.2 g/dL (5.7-8.2)
[2025-08-25 07:03] LABS: Blood Urea Nitrogen 5 mg/dL (9-23); Calcium 8.6 mg/dL (8.7-10.4)
[2025-08-25 07:11] LABS: Hematocrit 38.0 % (36.0-46.0); Hemoglobin 12.9 g/dL (12.2-16.2); Mean Corpuscular Hemoglobin 28.0 pg (28.0-32.0); Mean Corpuscular Volume 82.7 fL (80.0-100.0); Nucleated Red Blood Cells % 0.0 %
[2025-08-25 09:09] LABS: Anion Gap 10 (5-15); Chloride 105 mmol/L (98-107)
--- NOTE | 2025-08-25 11:35 | DVHPN2 ---
Subjective resting/ at bedside Changes from previous H/P or p: No Changes Objective Vitals Vital Signs Date Time Temp Pulse Resp B/P (MAP) Pulse Ox O2 Delivery O2 Flow Rate FiO2 08/25/25 08:54 97.8 71 17 96/68 (77) 100 97.8 08/25/25 08:04 Room Air* 0 21 Intake/Output Intake and Output 08/25/25 07:00 Intake Total 1350 ml Balance 1350 ml Intake Oral 0 ml IV Total 1350 ml # Voids 3 General Appearance: Alert, Oriented X3, No acute distress Lungs: Clear to auscultation Cardiovascular: Regular rate, Normal S1, Normal S2 Abdomen: Normal bowel sounds, Soft, No tenderness, No hepatospenomegaly Neuro: Other (sleeping now/per nursing and no new concerns/changes) Medications Current Medications Medications Dose Ordered Sig/Priya Route Start Time Stop Time Status Last Admin Dose Admin Ondansetron HCl 4 mg Q4HP PRN IV 08/24/25 03:15 Pantoprazole Sodium 40 mg DAILY IV 08/25/25 10:00 Hydromorphone HCl 0.5 mg Q4HPRN PRN IV 08/24/25 03:15 Ceftriaxone Sodium 50 ml @ 100 mls/hr DAILY@09 IV 08/24/25 09:00 08/24/25 06:38 100 MLS/HR Metronidazole 100 ml @ 100 mls/hr Q8HR IV 08/24/25 06:00 08/25/25 05:52 100 MLS/HR Potassium Chloride/Dextrose/ Sod Cl 1,000 ml @ 120 mls/hr Q8H20M IV 08/24/25 09:15 08/24/25 11:00 120 MLS/HR Laboratory Results Laboratory Tests 08/25/25 05:29 Chemistry Test 08/25/25 05:29 Albumin 4.3 g/dL (3.2-4.8) Calcium Level 8.6 mg/dL (8.7-10.4) L Total Protein 7.2 g/dL (5.7-8.2) LFT Test 08/25/25 05:29 Alanine Aminotransferase (ALT) 23 U/L (7-40) Alkaline Phosphatase 66 U/L (46-116) Aspartate Amino Transferase (AST) 21 U/L (13-40) Total Bilirubin 0.5 mg/dL (0.2-1.0) Urinalysis Test 08/24/25 02:45 Urine Color Colorless (Yellow) Urine Clarity Clear (Clear) Urine pH 7.5 (5.0-9.0) Urine Specific [place] 1.013 (1.001-1.035) Urine Protein Negative (Negative) Urine Ketones Negative (Negative) Urine Blood 3+ /uL (Negative) H Urine Nitrite Negative (Negative) Urine Bilirubin Negative (Negative) Urine Urobilinogen Normal mg/dL (Negative) Urine Leukocyte Esterase 1+ /uL (Negative) Urine RBC 356 /hpf (0 - 4) Urine Microscopic WBC 2 /HPF (0-5) Urine Squamous Epithelial Cells Few /hpf (<5) Urine Bacteria None seen /hpf (None Seen) Urine Glucose Normal mg/dL (Normal) Urine Test Negative (Negative) Assessment/Plan Plan discussed with: Patient, Spouse, Other My Orders Orders - GELA ALLISON MD Procedure Category Date Status Time Npo After Midnight MERLE 08/24/25 In Process 18:44 Npo (Nothing By DIET 08/25/25 Transmitted Mouth) Diet Breakfast Date of Service: Aug 25, 2025 Billing Provider: GELA ALLISON MD Common Visit Codes: [id number] INP/OBS CARE(MOD) GELA ALLISON MD Aug 25, 2025 11:35
[2025-08-25] MEDS: PANTOPRAZOLE 40 MG/10 ML VIAL INJ IV SCH (11:41)
[2025-08-25] MEDS: LIDOCAINE W/ EPINEPHRINE 1% 20ML VIAL ONE (12:07)
[2025-08-25] MEDS: BUPIVACAINE HCL 0.25% P/F 10 ML VIAL ONE (12:07)
[2025-08-25] MEDS: ceFAZolin 1GM VL ONE (12:55)
[2025-08-25] MEDS ORDERED: fentaNYL CITRATE 100 MCG/2 ML VL ONE (12:57)
[2025-08-25] MEDS ORDERED: MIDAZOLAM HCL 2MG/2ML 2ml VIAL (1mg/ml) ONE (12:57)
[2025-08-25] MEDS ORDERED: ONDANSETRON HCL 4 MG/2 ML VIAL ONE (12:58)
[2025-08-25] MEDS ORDERED: METOCLOPRAMIDE HCL 5MG/ml INJ 2ml VIAL ONE (12:58)
[2025-08-25] MEDS ORDERED: ROCURONIUM 10MG/ML 10ML VIAL IV ONE (12:58)
[2025-08-25] MEDS ORDERED: LIDOCAINE 2% (LOCAL ANESTH.) PF 5ml SDV ONE (12:58)
[2025-08-25] MEDS ORDERED: PROPOFOL 10 MG/ML 20 ML IV ONE (12:58)
[2025-08-25] MEDS ORDERED: METOCLOPRAMIDE HCL 5MG/ml INJ 2ml VIAL IV PRN (13:00)
[2025-08-25] MEDS ORDERED: HYDROmorphone HCL 2 MG/ML VL/or syr IV PRN (13:00)
[2025-08-25] MEDS ORDERED: ONDANSETRON HCL 4 MG/2 ML VIAL IV PRN (13:00)
[2025-08-25] MEDS ORDERED: HYDROmorphone HCL 2 MG/ML VL/or syr ONE (13:41)
[2025-08-25] MEDS ORDERED: SODIUM CHLORIDE LOCK 10 ML ONE (13:43)
[2025-08-25] MEDS ORDERED: SUGAMMADEX 200mg/2ml Vial (100MG/ML) IV ONE (13:48)
[2025-08-25] MEDS: ACETAMINOPHEN IV 1000 MG/100ML (10MG/ML) IV ONE (14:30)
[2025-08-25] MEDS: ACETAMINOPHEN IV 100 ML IV ONE (14:34)
[2025-08-25] MEDS: KETOROLAC TROMETH 30 MG/ML 1ML VIAL IV ONE (14:45)
--- NOTE | 2025-08-25 14:45 | DVHOP ---
DATE OF SURGERY: 08/25/2025 PREOPERATIVE DIAGNOSES: Cholelithiasis, cholecystitis. POSTOPERATIVE DIAGNOSES: Cholelithiasis, cholecystitis. SURGEON: Bismark Sanford MD CAM SPECIALIST: Phill Dodge. ANESTHESIA: General endotracheal. ANESTHESIOLOGIST: Jose Armando Johnston. PROCEDURE: Laparoscopy, laparoscopic cholecystectomy. DESCRIPTION OF PROCEDURE: Under general endotracheal anesthesia with the patient's skin prepped and draped, a supraumbilical incision was made and the Veress needle inserted by the hanging drop technique in order to establish pneumoperitoneum to 15 mmHg pressure by insufflation with carbon dioxide. With the abdomen fully distended, the needle was removed and replaced with a 5 mm trocar port through which a 0 degree viewing laparoscope was inserted and under direct vision, 5 and 10 mm ports inserted through the anterior axillary line at the level of the umbilicus and through the subxiphoid skin in the midline, respectively. Instrumentation was then introduced and laparoscopy was conducted revealing no obvious unexpected pathology on the serosal surfaces visualized. The gallbladder was affected by chronic and acute cholecystitis. It was placed on tension. The cystic duct and cystic artery were dissected from much surrounding scar tissue and inflammatory tissues. The patient's cystic duct exceedingly short. Circumferentially dissected. It was traced to the hepatocystic triangle so as to minimize the potential for inadvertent injury to the common bile duct. The cystic duct was skeletonized and then divided between metallic clips, placed as far away from the common duct as practical. The cystic duct was divided and then subsequently the cystic artery was identified, skeletonized, again traced into hepatocystic triangle and divided between metallic clips. Subsequently, the gallbladder was resected from its liver bed. The gallbladder was partially intrahepatic, which resulted in some denuding of the liver parenchyma, for which reason at the termination of the procedure, a 10 mm Jelani-Johnson drain was placed underneath the right lobe of the liver and a small amount of hemostatic SNoW was utilized to assist with hemostasis. The right upper quadrant was irrigated. Irrigant was aspirated. SNoW was applied. A drain was placed, exteriorized separately and secured with a 2-0 nylon suture. Following assurance of complete hemostasis at the site of the cholecystectomy and the port sites, the port sites were removed. Instrumentation was removed. Pneumoperitoneum was evacuated. Wounds approximated using Monocryl sutures, Dermabond glue, and Steri-Strips. The patient remained stable throughout the procedure, left the operating room following an accurate needle and sponge counts. Her was thoroughly informed by phone. MD ZOE Montes/TIAN TID: [id number] RECEIPT: [id number]
[2025-08-26 01:00] VITALS: BP 108/72; PULSE 99; RESP 18; TEMP 99.1; O2SAT 93
[2025-08-26] MEDS: KETOROLAC TROMETH 30 MG/ML 1ML VIAL IV ONE (01:10)
[2025-08-26 05:00] VITALS: BP 100/68; PULSE 91; RESP 16; TEMP 99; O2SAT 94
[2025-08-26 09:00] VITALS: BP 105/73; PULSE 79; RESP 18; TEMP 98.2; O2SAT 97
[2025-08-26 09:45] LABS: Hematocrit 33.6 % (36.0-46.0); Hemoglobin 11.4 g/dL (12.2-16.2); Mean Corpuscular Hemoglobin 28.0 pg (28.0-32.0); Mean Corpuscular Volume 82.9 fL (80.0-100.0); Nucleated Red Blood Cells % 0.0 %
--- NOTE | 2025-08-26 10:48 | DVHPN2 ---
Subjective Date Seen: Aug 26, 2025 Post op day Post op day: 1 Objective Vitals Vital Sign Date Time Temp Pulse Resp B/P (MAP) Pulse Ox O2 Delivery O2 Flow Rate FiO2 08/26/25 09:00 98.2 79 18 105/73 (84) 97 98.2 08/25/25 20:00 Room Air* 0 21 Total Intake and Output 08/25/25 08/25/25 08/26/25 15:00 23:00 07:00 Intake Total 300 ml Output Total 0 ml 30 ml Balance 0 ml -30 ml 300 ml Medications Current Medications Medications Dose Ordered Sig/Priya Route Start Time Stop Time Status Last Admin Dose Admin Ondansetron HCl 4 mg Q4HP PRN IV 08/24/25 03:15 Pantoprazole Sodium 40 mg DAILY IV 08/25/25 10:00 08/25/25 11:41 40 MG Hydromorphone HCl 0.5 mg Q4HPRN PRN IV 08/24/25 03:15 Ceftriaxone Sodium 50 ml @ 100 mls/hr DAILY@09 IV 08/24/25 09:00 08/25/25 11:41 100 MLS/HR Potassium Chloride/Dextrose/ Sod Cl 1,000 ml @ 120 mls/hr Q8H20M IV 08/24/25 09:15 08/26/25 04:46 120 MLS/HR Metronidazole 100 ml @ 100 mls/hr Q8H IV 08/26/25 02:00 08/26/25 01:16 100 MLS/HR Labs and Microbiology Laboratory Tests 08/26/25 09:20 08/25/25 05:29 Test 08/25/25 05:29 Range/Units Serum Glucose 85 74-106 mg/dL Ass/Plan Labs and/or images reviewed: Labs reviewed by me Problems(with codes): (1) Postoperative pain Assessment/Plan Complaints: - Reports postoperative pain. The expresses concern about managing care at home. Due to these factors, the patient will be kept for an additional night for observation and pain management. - Reports no nausea. Reports passing flatus. Physical Exam: - Abdominal examination reveals expected postoperative tenderness at the surgical site. - A surgical drain is in place. COLTON drain serous sanguinous output 10cc - Labs from this morning show a normal white blood cell count of 5.9 and a total bilirubin of 0.5. Plan: - Will remain in the hospital for one additional night for pain control and observation. - The was educated on managing the surgical drain at home. This included instructions on how to empty the drain bulb, measure the output, and re-engage the suction. It was explained that nursing staff will provide further teaching. - Encouraged to ambulate frequently, even with discomfort, to aid recovery. - The surgical drain will remain in place upon discharge and is scheduled to be removed in the clinic at a follow-up appointment. - The abdominal binder is for comfort and can be worn as desired. -may shower in 48 hours - advance diet as tolerated - follow up in surgery clinic in two weeks - ok to discharge per surgery view in 24 hours Prognosis: Excellent Plan discussed with patient, Dr. Sanford Visit Coding Surgery Date of Service if different f: Aug 26, 2025 Billing Provider: ALISON SANFORD MD Surgery Visit Codes: [id number] INP/OBS CARE(HIGH) BRANDI CHOWDHURY SAFE DEPOSIT CLERK Aug 26, 2025 10:48
[2025-08-26] MEDS: HYDROcodone-ACET 10/325MG TAB PO PRN (12:03)
--- NOTE | 2025-08-26 12:44 | DVH ---
Date: 08/26/2025 11:29 AM Examination: XY KUB ABDOMEN SINGLE VIEW History: abdonimal pain Comparison: None TECHNIQUE: Frontal views of the abdomen was obtained. FINDINGS: Bowel gas pattern is unremarkable. Surgical drain in the right upper quadrant. Surgical clips noted in the right upper quadrant previous cholecystectomy. The lung bases are unremarkable. No acute osseous abnormality identified. IMPRESSION: 1. Nonobstructive bowel gas pattern. 2. Surgical drain in the right upper quadrant.
[2025-08-26 12:50] VITALS: BP 98/71; PULSE 82; RESP 18; TEMP 97.7; O2SAT 98
[2025-08-26] MEDS: LACTATED RINGER'S 500 ML IV SCH (15:03)
[2025-08-26 17:10] VITALS: BP 94/63; PULSE 72; RESP 16; TEMP 97.7; O2SAT 95
--- NOTE | 2025-08-26 17:47 | DVHPN2 ---
Reviewed: H&P Changes from previous H/P or p: No Changes General: Per HPI Objective Vitals Vital Signs Date Time Temp Pulse Resp B/P (MAP) Pulse Ox O2 Delivery O2 Flow Rate FiO2 08/26/25 17:10 97.7 72 16 94/63 (73) 95 97.7 08/26/25 08:00 Room Air* 0 21 Intake/Output Intake and Output 08/26/25 07:00 Intake Total 300 ml Output Total 30 ml Balance 270 ml Intake Oral 300 ml Output Drainage Total 30 ml # Voids 2 General Appearance: Alert, Oriented X3, No acute distress Lungs: Clear to auscultation Cardiovascular: Regular rate, Normal S1, Normal S2 Abdomen: Normal bowel sounds, Soft, No tenderness, No hepatospenomegaly Neuro: Other (sleeping now/per nursing and no new concerns/changes) Medications Current Medications Medications Dose Ordered Sig/Priya Route Start Time Stop Time Status Last Admin Dose Admin Ondansetron HCl 4 mg Q4HP PRN IV 08/24/25 03:15 Pantoprazole Sodium 40 mg DAILY IV 08/25/25 10:00 08/26/25 12:03 40 MG Hydromorphone HCl 0.5 mg Q4HPRN PRN IV 08/24/25 03:15 Ceftriaxone Sodium 50 ml @ 100 mls/hr DAILY@09 IV 08/24/25 09:00 08/26/25 13:06 100 MLS/HR Metronidazole 100 ml @ 100 mls/hr Q8H IV 08/26/25 02:00 08/26/25 01:16 100 MLS/HR Acetaminophen/ Hydrocodone Bitart 1 tab Q4HP PRN PO 08/26/25 11:30 08/26/25 12:03 1 TAB Lactated Ringer's 500 ml @ 500 mls/hr Q1H IV 08/26/25 11:30 08/26/25 15:03 500 MLS/HR Laboratory Results Laboratory Tests 08/25/25 05:29 08/26/25 09:20 LFT Test 08/26/25 09:20 Total Bilirubin 0.5 mg/dL (0.2-1.0) Urinalysis Test 08/24/25 02:45 Urine Color Colorless (Yellow) Urine Clarity Clear (Clear) Urine pH 7.5 (5.0-9.0) Urine Specific [place] 1.013 (1.001-1.035) Urine Protein Negative (Negative) Urine Ketones Negative (Negative) Urine Blood 3+ /uL (Negative) H Urine Nitrite Negative (Negative) Urine Bilirubin Negative (Negative) Urine Urobilinogen Normal mg/dL (Negative) Urine Leukocyte Esterase 1+ /uL (Negative) Urine RBC 356 /hpf (0 - 4) Urine Microscopic WBC 2 /HPF (0-5) Urine Squamous Epithelial Cells Few /hpf (<5) Urine Bacteria None seen /hpf (None Seen) Urine Glucose Normal mg/dL (Normal) Urine Test Negative (Negative) Labs and/or images reviewed: Labs reviewed by me, Image(s) reviewed by me Assessment/Plan Assessment/Plan 34-year-old female with no significant past medical history, presented to [facility] ED with complaint of acute abdominal pain. She reports that the pain began suddenly at approximately 9:30 p.m. tonight, waking her from sleep and prompting her to come to the ED. The pain is described as sharp and constant, located in the right upper quadrant and epigastric region. She denies associated symptoms including nausea, vomiting, or fever. She notes experiencing similar symptoms approximately two weeks ago, which she managed at home with pain medication. On evaluation in the ED, patient is afebrile, tachypnea, other vitals are stable. Initial labs show BUN 8, creatinine 0.52. RUQ ultrasound shows Impacted gallstone in the gallbladder neck, gallbladder distention, borderline wall thickening, and mild surrounding edema concerning for acute cholecystitis. The patient was placed NPO, started on IV antibiotics and IV fluids. Patient is admitted for further evaluation and management. 08/26: Right upper quadrant ultrasound done in showing impacted gallstone in gallbladder neck, gallbladder distention, borderline wall thickening all findings concerning for acute cholecystitis. Surgery was consulted and taken to OR on 08/25. Patient received lap choly cystectomy, continuing IV antibiotics ceftriaxone metronidazole. We will adjust patient's medications, Tylenol, [place] 10 q.4, Dilaudid 0.5 q.4. Patient on clear liquid diet, defer to surgery. Continue present management keep patient in Med surge Acute cholecystitis Cholelithiasis Plan: Surgical consult Chest X-ray ordered ceftriaxone IV once Metronidazole IVPB q8h Zofran 8 MG IV once potonix 40 MG IV once Prn analgesia Med surge Full code Plan discussed with: Patient My Orders Orders - GUEVARA CAMPA MD Procedure Category Date Status Time Kub Abdomen Single XY 08/26/25 Resulted View 11:29 Hydrocodone-Acet PHA 08/26/25 In Process 10/325mg Tab ([place] 11:30 Lactated Ringer's PHA 08/26/25 In Process 11:30 Date of Service: Aug 26, 2025 Billing Provider: GUEVARA CAMPA MD Common Visit Codes: [id number] INP/OBS CARE(HIGH) GUEVARA CAMAP MD Aug 26, 2025 17:47
[2025-08-26 21:00] VITALS: BP 109/77; PULSE 78; RESP 17; TEMP 98.2; O2SAT 96
[2025-08-27 01:00] VITALS: BP 103/62; PULSE 88; RESP 16; TEMP 97.8; O2SAT 97
[2025-08-27 05:00] VITALS: BP 107/77; PULSE 85; RESP 16; TEMP 97.3; O2SAT 97
[2025-08-27 06:38] LABS: Hematocrit 36.3 % (36.0-46.0); Hemoglobin 12.4 g/dL (12.2-16.2); Mean Corpuscular Hemoglobin 28.6 pg (28.0-32.0); Mean Corpuscular Volume 83.6 fL (80.0-100.0); Nucleated Red Blood Cells % 0.2 %
[2025-08-27 07:03] LABS: Albumin 4.3 g/dL (3.2-4.8); Alkaline Phosphatase 63 U/L (46-116); Anion Gap 13 (5-15); Bilirubin, Total 0.5 mg/dL (0.2-1.0); Calcium 8.8 mg/dL (8.7-10.4); Carbon Dioxide 25 mmol/L (20-31); Chloride 104 mmol/L (98-107); Glucose 76 mg/dL (74-106); Potassium 3.8 mmol/L (3.5-5.1); Sodium 142 mmol/L (136-145); Total Protein 7.1 g/dL (5.7-8.2)
[2025-08-27 07:06] LABS: Alanine Aminotransferase 43 U/L (7-40); BUN/Creatinine Ratio 8.8 (10.0-20.0); Blood Urea Nitrogen < 5 mg/dL (9-23)
[2025-08-27 08:00] VITALS: PULSE 94; RESP 18; O2SAT 97
[2025-08-27 09:00] VITALS: BP 105/78; PULSE 94; RESP 18; TEMP 98.2; O2SAT 97
--- NOTE | 2025-08-27 11:14 | DVHPN2 ---
Progress Note Date Seen: Aug 27, 2025 Medical Necessity Reason Pt with a Central, PICC or Fol: No Objective vital signs Vital Sign Date Time Temp Pulse Resp B/P (MAP) Pulse Ox O2 Delivery O2 Flow Rate FiO2 08/27/25 09:00 98.2 94 18 105/78 (87) 97 98.2 08/27/25 08:00 Room Air* 0 21 Total Intake and Output 08/26/25 08/26/25 08/27/25 15:00 23:00 07:00 Intake Total 50 ml 1200 ml 1000 ml Output Total 30 ml Balance 50 ml 1170 ml 1000 ml medications Current Medications Medications Dose Ordered Sig/Priya Route Start Time Stop Time Status Last Admin Dose Admin Ondansetron HCl 4 mg Q4HP PRN IV 08/24/25 03:15 Pantoprazole Sodium 40 mg DAILY IV 08/25/25 10:00 08/27/25 09:38 40 MG Hydromorphone HCl 0.5 mg Q4HPRN PRN IV 08/24/25 03:15 Ceftriaxone Sodium 50 ml @ 100 mls/hr DAILY@09 IV 08/24/25 09:00 08/27/25 09:38 100 MLS/HR Metronidazole 100 ml @ 100 mls/hr Q8H IV 08/26/25 02:00 08/27/25 10:38 100 MLS/HR Acetaminophen/ Hydrocodone Bitart 1 tab Q4HP PRN PO 08/26/25 11:30 08/26/25 12:03 1 TAB laboratory and microbiology Laboratory Tests 08/27/25 05:12 Test 08/27/25 05:12 Range/Units Serum Glucose 76 74-106 mg/dL Problem List/Assessment/Plan Problem List/Assessment/Plan 08/27/25 doing well, tolerating po intake, no nausea, wounds clean and well approximated, abdomen soft, non distended and appropriately tender, COLTON drainage serous, small amount , she is cleared for discharge, with drain in place and return to see me in about one week. Plan discussed with: Patient ALISON LEVIN MD Aug 27, 2025 11:14
--- NOTE | 2025-08-27 11:49 | ECG ---
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
[2025-08-27 12:37] VITALS: BP 106/74; PULSE 82; RESP 18; TEMP 97.3; O2SAT 99
[2025-08-27] MEDS ORDERED: HYDR-4798 PO (15:26)
[2025-08-27] MEDS ORDERED: ZOFR4T PO (15:26)
[2025-08-27] MEDS ORDERED: AUG875T PO (15:26)
--- NOTE | 2025-08-27 15:30 | DVHDS2 ---
Discharge Summary Date of Admission Aug 24, 2025 at 03:11 Date of Discharge: Aug 27, 2025 Labs/Diagnostic Data: Laboratory Results Test 08/27/25 05:12 08/24/25 03:56 08/24/25 02:45 08/24/25 00:55 White Blood Count 5.5 10^3/uL (4.4-10.8) Red Blood Count 4.34 10^6/uL (4.0-5.20) Hemoglobin 12.4 g/dL (12.2-16.2) Hematocrit 36.3 % (36.0-46.0) Mean Corpuscular Volume 83.6 fL (80.0-100.0) Mean Corpuscular Hemoglobin 28.6 pg (28.0-32.0) Mean Corpuscular Hemoglobin Concent 34.2 g/dL (32.0-36.0) Red Cell Distribution Width 13.5 % (11.8-14.3) Platelet Count 235 10^3/uL (140-450) Mean Platelet Volume 7.2 fL (6.9-10.8) Neutrophils (%) (Auto) 65.8 % (37.0-80.0) Lymphocytes (%) (Auto) 24.9 % (10.0-50.0) Monocytes (%) (Auto) 7.1 % (0.0-12.0) Eosinophils (%) (Auto) 1.8 % (0.0-7.0) Basophils (%) (Auto) 0.4 % (0.0-2.0) Neutrophils # (Auto) 3.6 10 ^3/uL (1.6-8.6) Lymphocytes # (Auto) 1.4 10 ^3/uL (0.4-5.4) Monocytes # (Auto) 0.4 10 ^3/uL (0-1.3) Eosinophils # (Auto) 0.1 10 ^3/uL (0-0.8) Basophils # (Auto) 0 10 ^3/uL (0-0.2) Nucleated Red Blood Cells 0.2 % Sodium Level 142 mmol/L (136-145) Potassium Level 3.8 mmol/L (3.5-5.1) Chloride Level 104 mmol/L (98-107) Carbon Dioxide Level 25 mmol/L (20-31) Anion Gap 13 (5-15) Blood Urea Nitrogen < 5 mg/dL (9-23) Creatinine 0.57 mg/dL (0.550-1.02) Glomerular Filtration Rate Calc 122 mL/min (>90) BUN/Creatinine Ratio 8.8 (10.0-20.0) Serum Glucose 76 mg/dL (74-106) Calcium Level 8.8 mg/dL (8.7-10.4) Total Bilirubin 0.5 mg/dL (0.2-1.0) Aspartate Amino Transferase (AST) 38 U/L (13-40) Alanine Aminotransferase (ALT) 43 U/L (7-40) Alkaline Phosphatase 63 U/L (46-116) Total Protein 7.1 g/dL (5.7-8.2) Albumin 4.3 g/dL (3.2-4.8) Prothrombin Time 10.1 sec (9.3-11.8) Prothrombin Time INR 0.95 (0.9-1.15) Activated Partial Thromboplast Time 27.1 SEC (24.5-34.5) Magnesium Level 2.1 mg/dL (1.6-2.6) Beta HCG, Quantitative 0.8 mIU/mL (1.5-4.2) Urine Color Colorless (Yellow) Urine Clarity Clear (Clear) Urine pH 7.5 (5.0-9.0) Urine Specific [place] 1.013 (1.001-1.035) Urine Protein Negative (Negative) Urine Ketones Negative (Negative) Urine Blood 3+ /uL (Negative) Urine Nitrite Negative (Negative) Urine Bilirubin Negative (Negative) Urine Urobilinogen Normal mg/dL (Negative) Urine Leukocyte Esterase 1+ /uL (Negative) Urine RBC 356 /hpf (0 - 4) Urine Microscopic WBC 2 /HPF (0-5) Urine Squamous Epithelial Cells Few /hpf (<5) Urine Bacteria None seen /hpf (None Seen) Urine Glucose Normal mg/dL (Normal) Urine Test Negative (Negative) Urine Opiates Screen Neg (NEGATIVE) Urine Fentanyl Screen Neg (NEGATIVE) Urine Barbiturates Screen Neg (NEGATIVE) Urine Phencyclidine Screen Neg (NEGATIVE) Urine Amphetamines Screen Neg (NEGATIVE) Urine Benzodiazepines Screen Neg (NEGATIVE) Urine Cocaine Screen Neg (NEGATIVE) Urine Cannabinoids Screen Neg (NEGATIVE) Troponin I High Sensitivity < 3 ng/L (</=34) Test 08/23/25 23:51 Lactic Acid Level 1.0 mmol/L (0.4-2.0) Lipase 53 U/L (12-53) Other Laboratory Tests 08/27/25 05:12 Brief Hx & Hospital Course: 34-year-old female with no significant past medical history, presented to [facility] ED with complaint of acute abdominal pain. She reports that the pain began suddenly at approximately 9:30 p.m. tonight, waking her from sleep and prompting her to come to the ED. The pain is described as sharp and constant, located in the right upper quadrant and epigastric region. She denies associated symptoms including nausea, vomiting, or fever. She notes experiencing similar symptoms approximately two weeks ago, which she managed at home with pain medication. On evaluation in the ED, patient is afebrile, tachypnea, other vitals are stable. Initial labs show BUN 8, creatinine 0.52. RUQ ultrasound shows Impacted gallstone in the gallbladder neck, gallbladder distention, borderline wall thickening, and mild surrounding edema concerning for acute cholecystitis. The patient was placed NPO, started on IV antibiotics and IV fluids. Patient is admitted for further evaluation and management. 08/26: Right upper quadrant ultrasound done in showing impacted gallstone in gallbladder neck, gallbladder distention, borderline wall thickening all findings concerning for acute cholecystitis. Surgery was consulted and taken to OR on 08/25. Patient received lap choly cystectomy, continuing IV antibiotics ceftriaxone metronidazole. We will adjust patient's medications, Tylenol, [place] 10 q.4, Dilaudid 0.5 q.4. Patient on clear liquid diet, defer to surgery. Continue present management keep patient in Med surge 08/27: Patient is cleared by surgery, tolerating diet, abdominal pain manageable with p.o. medications, passing gas. stable for discharge as per plan below Diagnosis: Acute cholecystitis status post laparoscopic cholecystectomy 08/25/2025 Sirs without AOD, due to above Cholelithiasis Intractable abdominal pain, due to above, resolving Plan: - Continue full liquid diet1 week , advance thereafter. [id number] mg twice daily for 4 days - Follow up 1 week with surgery clinic to remove COLTON drain - Use abdominal binder during ambulation - Ffor pain use 1st line Tylenol OTC, second-line ibuprofen OTC, 3rd line use prescription [place] 10 mg up to 4 times daily as needed - For nausea, use Zofran ODT as needed up to 3 times daily - Follow up with PCP to review discharge. - follow up DC clinic 1 week Condition at Discharge: Fair Final Diagnosis/Problems List Acute cholecystitis status post laparoscopic cholecystectomy 08/25/2025 Sirs without AOD, due to above Cholelithiasis Intractable abdominal pain, due to above, resolving Discharge Disposition: Home Discharge Instruct/Medications No Active Prescriptions or Reported Meds Discharge Statement: "Patient was advised to return to the ER or call 911 if any headaches, dizziness, shortness of breath, chest pain, abdominal pain, bleeding, fevers, or worsening of medical condition. Patient was counseled about treatment plan, medications, possible side effects, patientverbalized understanding. All questions were answered to the best of my ability. This discharge took greater then 30 minutes in planning, reviewing documentation, counseling the patient, and discussing with other team members." ASSESSMENT ASSESSMENT Assessment Date of Service: Aug 27, 2025 Billing Provider: GUEVARA CAMPA MD Common Visit Codes: [id number] DISCH DAY >30min GUEVARA CAMPA MD Aug 27, 2025 15:30
[2025-08-27 16:13] VITALS: BP 106/74; PULSE 82; RESP 18; TEMP 97.3; O2SAT 99
== END 2025-08-27 17:55 | disposition home or self-care (01) | DRG 263 ==
LOC: ER 23:21 → OVERFLOW 08-24 03:11 → WEST WING 08-24 18:43
PROVIDERS: ADMIT Student in an Organized Health Care Education/Training Program; ATTEND Student in an Organized Health Care Education/Training Program
PROC: 0FT44ZZ Resection of Gallbladder, Percutaneous Endoscopic Approach (ICD-10-PCS; principal; 2025-08-25 13:07)
DX: K80.12 Calculus of gallbladder with acute and chronic cholecystitis without obstruction (principal); G89.18 Other acute postprocedural pain; R65.10 Systemic inflammatory response syndrome (SIRS) of non-infectious origin without acute organ dysfunction; K82.8 Other specified diseases of gallbladder; Z98.891 History of uterine scar from previous surgery
CPT/HCPCS: 36415; 71045; 74018; 74177; 76705; 80053; 80307; 81001; 81025; 82247; 83605; 83690; 83735; 84484; 84702; 85025; 85610; 85730; 86850; 86900; 86901; 88341; 93005; 96374; 96375; G0378; J0131; J0690; J1885; J2003; J2250; J2405; J2470; J2543; J2704; J3490